=== PATIENT | female | born 1990 | race Caucasian/White ===

== ENCOUNTER 2019-11-15 08:55 | Emergency (ER) | payer MEDICAID ==
[~2019-11-15] VITALS: Ht 157.5 cm; Wt 74.8 kg
[2019-11-15 09:01] VITALS: Ht 157.5 cm; Wt 74.8 kg
[2019-11-15 09:59] VITALS: BP 100/65
== END 2019-11-15 09:59 | disposition home or self-care (01) ==
LOC: ED 08:55
DX: H00.011 Hordeolum externum right upper eyelid (principal); Z88.0 Allergy status to penicillin; Z87.442 Personal history of urinary calculi

== ENCOUNTER 2020-02-16 06:43 | Emergency (ER) | payer MEDICAID ==
[~2020-02-16] VITALS: Ht 162.6 cm; Wt 74.4 kg
[2020-02-16 06:57] VITALS: Ht 162.6 cm; Wt 74.4 kg
[2020-02-16 08:53] LABS: ALBUMIN 3.5 g/dL (3.4-5.0); CALCIUM 8.7 mg/dL (8.5-10.1); CHLORIDE SERUM 100 mmol/L (98-107); CREATININE SERUM 0.6 mg/dL (0.6-1.0); GFR1 > 60 mL/min
[2020-02-16 09:00] LABS: BASOPHIL % 0.4 % (0-2); PLATELET COUNT 203 x10^3mcL (130-400); RED CELL DISTRIBUTION WIDTH 13.4 % (11.5-14.5)
[2020-02-16 09:07] LABS: CARBON DIOXIDE 23.1 mmol/L (21-32); GLUCOSE SERUM 89 mg/dL (74-106); POTASSIUM SERUM 3.9 mmol/L (3.5-5.1); SODIUM SERUM 131 mmol/L (136-145)
[2020-02-16 09:12] LABS: ALKALINE PHOSPHATASE 49 U/L (46-116); ALT/SGPT 17 U/L (14-59); AST/SGOT 24 U/L (15-37); BILIRUBIN TOTAL 0.4 mg/dL (0.20-1.00)
[2020-02-16 10:37] VITALS: BP 95/51
== END 2020-02-16 10:37 | disposition home or self-care (01) ==
LOC: ED 06:43
PROVIDERS: Emergency Medicine
DX: O21.8 Other vomiting complicating pregnancy (principal); Z3A.00 Weeks of gestation of pregnancy not specified; Z88.0 Allergy status to penicillin; Z87.442 Personal history of urinary calculi; Z90.89 Acquired absence of other organs
CPT/HCPCS: J2405; J7030; Q0092

== ENCOUNTER 2020-02-23 07:48 | Emergency (ER) | payer MEDICAID ==
[~2020-02-23] VITALS: Ht 157.5 cm; Wt 75.7 kg
[2020-02-23 08:02] VITALS: Ht 157.5 cm; Wt 75.7 kg
[2020-02-23 08:28] LABS: microscopic required? NO
[2020-02-23 08:45] LABS: BASOPHIL % 0.4 % (0-2); CALCIUM 8.6 mg/dL (8.5-10.1); CARBON DIOXIDE 26.8 mmol/L (21-32); CHLORIDE SERUM 104 mmol/L (98-107); CREATININE SERUM 0.6 mg/dL (0.6-1.0); GFR1 > 60 mL/min; GLUCOSE SERUM 97 mg/dL (74-106); PLATELET COUNT 188 x10^3mcL (130-400); POTASSIUM SERUM 3.8 mmol/L (3.5-5.1); RED CELL DISTRIBUTION WIDTH 13.4 % (11.5-14.5); SODIUM SERUM 136 mmol/L (136-145)
[2020-02-23 08:50] LABS: UA SPECIFIC GRAVITY 1.025 (1.005-1.035); urine erythrocyte NEGATIVE (NEGATIVE)
[2020-02-23 10:17] VITALS: BP 111/68
== END 2020-02-23 10:17 | disposition home or self-care (01) ==
LOC: ED 07:48
PROVIDERS: Emergency Medicine
DX: O20.9 Hemorrhage in early pregnancy, unspecified (principal); Z3A.01 Less than 8 weeks gestation of pregnancy; Z87.442 Personal history of urinary calculi; Z90.89 Acquired absence of other organs; Z88.0 Allergy status to penicillin; Z88.8 Allergy status to other drugs, medicaments and biological substances
CPT/HCPCS: Q0092

== ENCOUNTER 2020-02-27 09:17 | Emergency (ER) | payer MEDICAID ==
[~2020-02-27] VITALS: Ht 157.5 cm; Wt 75.3 kg
[2020-02-27 09:45] VITALS: Ht 157.5 cm; Wt 75.3 kg
[2020-02-27 10:42] LABS: BASOPHIL % 0.4 % (0-2); PLATELET COUNT 195 x10^3mcL (130-400); RED CELL DISTRIBUTION WIDTH 13.3 % (11.5-14.5)
[2020-02-27 13:42] VITALS: BP 103/55
== END 2020-02-27 12:45 | disposition home or self-care (01) ==
LOC: ED 09:17
PROVIDERS: Emergency Medicine
DX: O20.0 Threatened abortion (principal); Z3A.01 Less than 8 weeks gestation of pregnancy; Z87.442 Personal history of urinary calculi; Z90.89 Acquired absence of other organs; Z88.0 Allergy status to penicillin; Z91.040 Latex allergy status

== ENCOUNTER 2020-03-12 12:26 | Emergency (ER) | payer MEDICAID ==
[~2020-03-12] VITALS: Ht 157.5 cm; Wt 74.1 kg
[2020-03-12 13:10] VITALS: Ht 157.5 cm; Wt 74.1 kg
[2020-03-12 13:59] LABS: microscopic required? NO
[2020-03-12 14:02] LABS: BASOPHIL % 0.3 % (0-2); PLATELET COUNT 199 x10^3mcL (130-400); RED CELL DISTRIBUTION WIDTH 12.9 % (11.5-14.5)
[2020-03-12 14:11] LABS: urine erythrocyte NEGATIVE (NEGATIVE)
[2020-03-12 14:25] LABS: CALCIUM 8.5 mg/dL (8.5-10.1); CARBON DIOXIDE 27.9 mmol/L (21-32); CHLORIDE SERUM 104 mmol/L (98-107); CREATININE SERUM 0.7 mg/dL (0.6-1.0); GFR1 > 60 mL/min; GLUCOSE SERUM 96 mg/dL (74-106); SODIUM SERUM 135 mmol/L (136-145)
[2020-03-12 14:31] LABS: ALBUMIN 3.4 g/dL (3.4-5.0); ALKALINE PHOSPHATASE 49 U/L (46-116); ALT/SGPT 35 U/L (14-59); AST/SGOT 23 U/L (15-37); BILIRUBIN TOTAL 0.3 mg/dL (0.20-1.00); TOTAL PROTEIN, SERUM 6.3 g/dL (6.4-8.2)
[2020-03-12 16:07] VITALS: BP 117/82
== END 2020-03-12 16:08 | disposition home or self-care (01) ==
LOC: ED 12:26
PROVIDERS: Emergency Medicine
DX: O21.8 Other vomiting complicating pregnancy (principal); O44.01 Complete placenta previa NOS or without hemorrhage, first trimester; E86.0 Dehydration; O20.8 Other hemorrhage in early pregnancy; Z3A.08 8 weeks gestation of pregnancy; Z87.442 Personal history of urinary calculi; Z88.0 Allergy status to penicillin; Z91.040 Latex allergy status
CPT/HCPCS: J1200; J2765; J7030

== ENCOUNTER 2020-04-21 17:13 | Emergency (ER) | payer MEDICAID ==
[~2020-04-21] VITALS: Ht 157.5 cm; Wt 73.5 kg
[2020-04-21 17:18] VITALS: Ht 157.5 cm; Wt 73.5 kg
[2020-04-21 20:27] LABS: BASOPHIL % 0.2 % (0.2-1.3); PLATELET COUNT 225 x10^3mcL (179-408); RED CELL DISTRIBUTION WIDTH 12.7 % (12.3-17.7)
[2020-04-21 20:48] VITALS: BP 108/58
== END 2020-04-21 21:40 | disposition home or self-care (01) ==
LOC: ED 17:13
PROVIDERS: Emergency Medicine
DX: O21.0 Mild hyperemesis gravidarum (principal); O20.0 Threatened abortion; Z3A.14 14 weeks gestation of pregnancy; Z88.0 Allergy status to penicillin; Z91.040 Latex allergy status; Z87.442 Personal history of urinary calculi; Z90.89 Acquired absence of other organs
CPT/HCPCS: Q0162

== ENCOUNTER 2020-05-04 15:14 | Emergency (ER) | payer MEDICAID, SELFPAY ==
[~2020-05-04] VITALS: Ht 157.5 cm; Wt 73.9 kg
[2020-05-04 15:16] VITALS: BP 104/61; Ht 157.5 cm; Wt 73.9 kg
== END 2020-05-04 16:18 | disposition home or self-care (01) ==
LOC: ED 15:14
DX: O99.512 Diseases of the respiratory system complicating pregnancy, second trimester (principal); R06.00 Dyspnea, unspecified; Z3A.15 15 weeks gestation of pregnancy; Z20.828 Contact with and (suspected) exposure to other viral communicable diseases
CPT/HCPCS: U0003

== ENCOUNTER 2020-06-03 10:47 | Emergency (ER) | payer MEDICAID ==
[~2020-06-03] VITALS: Ht 157.5 cm; Wt 75.7 kg
[2020-06-03 10:52] VITALS: Ht 157.5 cm; Wt 75.7 kg
[2020-06-03 11:33] LABS: BASOPHIL % 0.3 % (0.2-1.3); PLATELET COUNT 220 x10^3mcL (179-408); RED CELL DISTRIBUTION WIDTH 13.7 % (12.3-17.7)
[2020-06-03 11:45] LABS: CALCIUM 8.4 mg/dL (8.5-10.1); CARBON DIOXIDE 25.8 mmol/L (21-32); CHLORIDE SERUM 106 mmol/L (98-107); CREATININE SERUM 0.5 mg/dL (0.6-1.0); GFR1 > 60 mL/min; GLUCOSE SERUM 94 mg/dL (74-106); POTASSIUM SERUM 3.7 mmol/L (3.5-5.1); SODIUM SERUM 141 mmol/L (136-145)
[2020-06-03 11:50] LABS: ALBUMIN 2.7 g/dL (3.4-5.0); ALKALINE PHOSPHATASE 55 U/L (46-116); ALT/SGPT 21 U/L (14-59); AST/SGOT 15 U/L (15-37); BILIRUBIN TOTAL 0.2 mg/dL (0.20-1.00); LIPASE 78 IU/L (73-393); TOTAL PROTEIN, SERUM 6.3 g/dL (6.4-8.2)
[2020-06-03 12:22] LABS: UA SPECIFIC GRAVITY 1.015 (1.005-1.035); microscopic required? YES; urine erythrocyte 3+ (NEGATIVE)
[2020-06-03 13:10] VITALS: BP 102/62
== END 2020-06-03 13:10 | disposition home or self-care (01) ==
LOC: ED 10:47
PROVIDERS: Emergency Medicine
DX: O98.812 Other maternal infectious and parasitic diseases complicating pregnancy, second trimester (principal); N20.0 Calculus of kidney; Z3A.20 20 weeks gestation of pregnancy; Z87.442 Personal history of urinary calculi; Z90.89 Acquired absence of other organs; Z88.0 Allergy status to penicillin; Z91.040 Latex allergy status
CPT/HCPCS: J2270; J2405; J7030